=== PATIENT | male | born 1975 | race Caucasian/White ===

== ENCOUNTER 2020-01-11 19:42 | Emergency (ER) | payer SELFPAY ==
[2020-01-11] MEDS ORDERED: Acetaminophen 500 MG TAB ONE (20:05)
[2020-01-11] MEDS ORDERED: Azithromycin 250 MG TAB ONE (20:57)
== END 2020-01-11 21:10 | disposition home or self-care (01) ==
LOC: NAV ERS 19:42
DX: H66.92 Otitis media, unspecified, left ear (principal); I10 Essential (primary) hypertension; Z79.899 Other long term (current) drug therapy
CPT/HCPCS: 87804; 99283